=== PATIENT | female | born 1995 | race Two or more races ===

== ENCOUNTER 2023-08-27 21:20 | Inpatient (IN) | payer MEDICAID ==
[~2023-08-27] VITALS: Ht 165.1 cm; Wt 57.2 kg
[2023-08-27 22:12] VITALS: BP 132/78; PULSE 50; RESP 18; TEMP 98.6
[2023-08-27] MEDS ORDERED: MORPHINE SULFATE 10 MG/ML VIAL IVP PRN (22:20)
[2023-08-27] MEDS ORDERED: CARBOPROST 250 MCG/ML AMP IM PRN (22:20)
[2023-08-27] MEDS ORDERED: ONDANSETRON 4 MG/2 ML VIAL IVP PRN (22:20)
[2023-08-27 23:13] LABS: BASOPHILS % (AUTO) 0.4 % (0.0-2.0); EOSINOPHILS % (AUTO) 0.4 % (0.0-4.0); HEMATOCRIT 34.3 % (36-48); HEMOGLOBIN 11.9 g/dL (12.0-16.0); LYMPHOCYTES # (AUTO) 1.6 K/uL (2.5-16.5); LYMPHOCYTES % (AUTO) 21.7 % (20.5-51.1); MEAN CORPUSCULAR HEMOGLOBIN 33 pg (27-31); MEAN CORPUSCULAR HGB CONC 35 g/dL (33-37); MEAN CORPUSCULAR VOLUME 93.5 fL (80-94); MONOCYTES # (AUTO) 0.4 K/uL (0.8-1.0); MONOCYTES % (AUTO) 5.7 % (1.7-9.3); NEUTROPHILS # (AUTO) 5.3 K/uL (1.8-7.7); NEUTROPHILS % (AUTO) 71.8 % (42.2-75.2); PLATELET COUNT (AUTO) 185 K/uL (140-450); RED BLOOD CELL COUNT(AUTO) 3.67 MIL/uL (4.20-5.40); WHITE BLOOD COUNT (AUTO) 7.4 K/uL (4.8-10.8)
[2023-08-27 23:18] LABS: APPEARANCE,URINE CLEAR (CLEAR); BILIRUBIN,URINE 2+ (NEGATIVE); BLOOD, URINE NEGATIVE (NEGATIVE); COLOR,URINE YELLOW (YELLOW); LEUKOCYTE ESTERASE ,URINE TRACE (NEGATIVE); NITRITE, URINE NEGATIVE (NEGATIVE); PROTEIN,URINE 1+ (NEGATIVE); UGLUCOSE NEGATIVE (NEGATIVE)
[2023-08-27] MEDS: LACTATED RINGERS 1,000 ML IV SCH (23:19)
[2023-08-27 23:38] LABS: ALBUMIN 1.6 g/dL (3.4-5.0); ANION GAP 11.4 (8-16); CARBON DIOXIDE 21.6 mmol/L (21-32); CREATININE 0.8 mg/dL (0.6-1.3); TOTAL BILIRUBIN 1.4 mg/dL (0.0-1.0); URIC ACID 6.4 mg/dL (2.6-7.2)
[2023-08-28 00:05] LABS: ICTOTEST POSITIVE (NEGATIVE)
[2023-08-28 00:06] LABS: RBC,URINE 0-5 /HPF (0-5)
[2023-08-28 00:07] LABS: BACTERIA,URINE 1+ /HPF (None Seen)
[2023-08-28] MEDS: MISOPROSTOL 25 MCG TAB VG PRN (00:13)
[2023-08-28] MEDS ORDERED: PREN-543 PO (00:19)
[2023-08-28 01:07] LABS: INR 0.83 (0.8-1.2); PARTIAL THROMBOPLASTIN TIME 26.2 secs (22-35.6); PROTHROMBIN TIME 8.8 secs (10.8-13.4)
[2023-08-28] MEDS ORDERED: ROPIVACAINE 0.2%/NS PREMIX 200 ML EPI SCH (03:55)
[2023-08-28] MEDS ORDERED: ROPIVACAINE 0.2%/NS PREMIX 200 ML EPI ONE (04:02)
[2023-08-28] MEDS: OXYTOCIN 20 UNITS in LACTATED RINGERS 1,000 ML IV SCH (04:21)
[2023-08-28] MEDS: OXYTOCIN 20 UNITS/LR PREMIX 1,000 ML IV ONE (10:07)
[2023-08-28] MEDS: MISOPROSTOL 200 MCG TAB ONE (12:20)
[2023-08-28] MEDS: METHYLERGONOVINE 0.2 MG/ML AMP IM PRN (12:20)
[2023-08-28] MEDS ORDERED: MISOPROSTOL 100 MCG TAB PO SCH (12:25)
[2023-08-28 15:18] LABS: URINE TPRO CREAT RATIO 0.5 (0-0.20)
[2023-08-28] MEDS ORDERED: BENZOCAINE/MENTHOL 20%-0.5% 60 GM CAN TP PRN (17:30)
[2023-08-28] MEDS ORDERED: METHYLERGONOVINE 0.2 MG/ML AMP IM PRN (17:30)
[2023-08-28] MEDS ORDERED: OXYTOCIN 10 UNITS/ML VIAL IM PRN (17:30)
[2023-08-28] MEDS ORDERED: METHYLERGONOVINE 0.2 MG TAB PO PRN (17:30)
[2023-08-28] MEDS ORDERED: MEASLES, MUMPS, AND RUBELLA 1 VIAL SQVAC ONE (17:30)
[2023-08-28] MEDS: IBUPROFEN 800 MG TAB PO PRN (20:07)
[2023-08-29 05:47] LABS: HEMATOCRIT 22.7 % (36-48); HEMOGLOBIN 7.9 g/dL (12.0-16.0)
[2023-08-30 05:26] LABS: HEMATOCRIT 22.1 % (36-48); HEMOGLOBIN 7.6 g/dL (12.0-16.0)
== END 2023-08-30 17:40 | disposition home or self-care (01) | DRG 560 ==
LOC: MLD 21:20 → MFCC 08-28 15:41
PROVIDERS: ADMIT Obstetrics & Gynecology; ATTEND Obstetrics & Gynecology
PROC: 10E0XZZ Delivery of Products of Conception, External Approach (ICD-10-PCS; principal; 2023-08-28)
PROC: 3E0R3BZ Introduction of Anesthetic Agent into Spinal Canal, Percutaneous Approach (ICD-10-PCS; 2023-08-28)
PROC: 00HU33Z Insertion of Infusion Device into Spinal Canal, Percutaneous Approach (ICD-10-PCS; 2023-08-28)
DX: O26.643 Intrahepatic cholestasis of pregnancy, third trimester (principal); Z37.0 Single live birth; K83.1 Obstruction of bile duct; Z20.822 Contact with and (suspected) exposure to COVID-19; Z3A.37 37 weeks gestation of pregnancy
CPT/HCPCS: 36415; 51702; 59200; 59409; 76815; 80053; 81001; 82570; 84550; 85018; 85025; 85384; 85610; 85730; 86592; 86762; 86886; 86900; 86901; 87086; 87340; J2210; J2590; J2795; J7120; Q0092